=== PATIENT | female | born 1950 | race Caucasian/White ===

== ENCOUNTER 2019-01-04 12:20 | Outpatient (CLI) | payer MEDICARE, OTHER | END 2019-01-04 23:59 | disposition home or self-care (01) | LOC: CFH 12:20 → EDSTATUS 12:30 → CFH 23:59 | PROVIDERS: ATTEND Family Medicine | DX: M85.88 Other specified disorders of bone density and structure, other site (principal) | CPT/HCPCS: 77080 ==